=== PATIENT | female | born 1950 | race African-American/Black ===

== ENCOUNTER 2016-05-15 10:39 | Day surgery (SDC) | payer MEDICARE ==
[2016-05-15] VITALS (9 sets, daily range): BP systolic 128–188; BP diastolic 74–116
[~2016-05-15] VITALS: Ht 167.6 cm; Wt 77.1 kg
--- OUTSIDE RECORDS SUMMARY | 2016-05-15 10:44 | XMS REPORT ---
Author Author Ezio Hernández [facility] Address [address] [place], [place] [id number] Care Team Providers Care Forms Examiner Name Role Phone Ezio Hernández PCP Rosendo Zazueta PreferredProvider Unavailable Allergies and Adverse Reactions Name Reaction Notes codeine sulfate out of body feeling Bactrim DS hives Plan of Treatment Planned Activity Comments Planned Date Planned Time Plan/Goal Lipid Profile 01/25/2012 12:00 AM Medications Active Name Start Date Estimated Completion Date SIG Comments amlodipine 10 mg oral tablet 02/05/2015 TAKE ONE TABLET BY MOUTH ONCE DAILY Mobic 7.5 mg oral tablet 03/09/2016 04/08/2016 take 1 tablet (7.5 mg) by oral route once daily for 30 days Name Start Date Expiration Date SIG Comments Lortab 5-500 mg oral tablet 11/28/2010 12/08/2010 take 1 tablet by oral route every 6 hours as needed for pain for 10 days Keflex 500 mg oral capsule 12/10/2010 12/17/2010 take 1 capsule (500 mg) by oral route every 12 hours for 7 days Diflucan 150 mg oral tablet 12/10/2010 12/11/2010 take 1 tablet (150 mg) by oral route once for 1 day Lortab 7.5-500 mg oral tablet 12/10/2010 12/24/2010 take 1 tablet by oral route every 6 hours as needed for pain for 14 days Colace 100 mg oral capsule 12/17/2010 02/15/2011 take 1 capsule (100 mg) by oral route 2 times per day as needed for constipation citalopram 20 mg oral tablet 01/13/2011 take 1 tablet (20 mg) by oral route once daily Taking Zoloft Augmentin 500-125 mg oral tablet 11/30/2011 12/07/2011 take 1 tablet by oral route every 12 hours for 7 days doxycycline hyclate 100 mg oral tablet 03/01/2012 03/08/2012 take 1 tablet ( 100 mg) by oral route 2 times per day for 7 days Zithromax Z-Virgil 250 mg oral tablet 05/09/2012 05/14/2012 take 2 tablets (500 mg) by oral route once daily for 1 day then 1 tablet (250 mg) by oral route once daily for 4 days Zithromax Z-Virgil 250 mg oral tablet 03/30/2013 04/04/2013 take 2 tablets (500 mg) by oral route once daily for 1 day then 1 tablet (250 mg) by oral route once daily for 4 days amoxicillin-pot clavulanate 500-125 mg oral tablet 04/11/2013 04/18/2013 take 1 tablet by oral route every 12 hours for 7 days naproxen 500 mg oral tablet 11/20/2013 05/19/2014 take 1 tablet (500 mg) by oral route every 12 hours with food for 30 days takes IBproffin instead amlodipine 10 mg oral tablet 05/30/2014 11/26/2014 take 1 tablet (10 mg) by oral route once daily for 30 days metronidazole 500 mg oral tablet 03/01/2015 03/08/2015 take 1 tablet by oral route 2 times a day for 7 days Cipro 500 mg oral tablet 03/01/2015 03/08/2015 take 1 tablet (500 mg) by oral route 2 times per day for 7 days alprazolam 0.5 mg oral tablet 11/28/2015 02/26/2016 take 1 tablet by oral route once a day (at bedtime) as needed metronidazole 500 mg oral tablet 12/23/2015 12/28/2015 take 1 tablet (500 mg) by oral route 2 times per day for 5 days ciprofloxacin HCl 500 mg oral tablet 12/23/2015 12/28/2015 take 1 tablet (500 mg) by oral route every 12 hours for 5 days Discontinued Name Start Date Discontinued Date SIG Comments Celexa 20 mg oral tablet 08/05/2010 take 1 tablet (20 mg) by oral route once daily doxycycline hyclate 100 mg oral capsule 10/06/2010 take 1 capsule (100 mg) by oral route twice daily Dr. Trevino lisinopril 20 mg oral tablet 09/29/2010 12/01/2010 take 2 tablets (40 mg) by oral route once daily Mobic 15 mg oral tablet 10/06/2010 11/28/2010 take 1 tablet by oral route QD for 30 days bupropion HCl 150 mg oral tablet extended release 24 hr 10/06/2010 11/28/2010 take 1 tablet (150 mg) by oral route once daily cyclobenzaprine 10 mg oral tablet 02/05/2011 11/30/2011 take 0.5-1 tablet by oral route once a day (at bedtime) as needed Lidoderm 5 % topical adhesive patch,medicated 02/05/2011 11/30/2011 apply 1 patch by transdermal route once daily (May wear up to 12hours.) Nasonex 50 mcg/actuation nasal spray,non-aerosol 02/05/2011 10/17/2012 spray 2 sprays in each nostril by intranasal route once daily hydrocodone-acetaminophen 7.5-500 mg oral tablet 04/14/2011 11/30/2011 take 1 tablet by oral route every 6 hours as needed for pain meloxicam 15 mg oral tablet 11/30/2011 03/01/2012 take 1 tablet (15 mg) by oral route once daily for 30 days "finished prescription" Flexeril 10 mg oral tablet 03/01/2012 04/11/2013 take 1 tablet by mouth daily at HS prednisone 20 mg oral tablet 04/28/2012 10/17/2012 take 2 tablets daily x2 days then, then 1 daily x2 days, then 1/2 tablet daily x 4 days. Claritin-D 12 Hour 5-120 mg oral tablet extended release 12 hr 05/09/201210/17 take 1 tablet by oral route every 12 hours promethazine-codeine 6.25-10 mg/5 mL oral syrup 05/09/2012 10/17/2012 take 5 milliliters by oral route every 4-6 hours as needed, not to exceed 30 mL in 24 hours ibuprofen 800 mg oral tablet 10/17/2012 04/11/2013 take 1 tablet by oral route 3 times a day as needed with food hyoscyamine sulfate 0.125 mg oral tablet 04/11/2013 12/23/2015 take 1 tablet (0.125 mg) by oral route 3 times per day as needed loratadine 10 mg oral tablet 04/11/2013 12/23/2015 take 1 tablet (10 mg) by oral route once daily as needed sertraline oral 01/04/2014 fluticasone 50 mcg/actuation nasal spray,suspension 07/03/2013 07/12/2014 inhale 1 spray (50 mcg) in each nostril by intranasal route 2 times per day ibuprofen 800 mg oral tablet 09/29/2013 11/20/2013 take 1 tablet (800 mg) by oral route 3 times per day with food as needed Changing to naproxen cyclobenzaprine 10 mg oral tablet 11/20/2013 12/23/2015 take 1 tablet (10 mg) by oral route 2 times per day as needed Fetzima 20 mg oral capsule,extended release 24 hr 10/14/2014 12/23/2015 take 1 capsule (20 mg) by oral route once daily for 2 days then 2 capsules (40 mg) daily about the same time each day omeprazole 20 mg oral capsule,delayed release(DR/EC) 11/19/2014 12/23/2015 take 1 capsule (20 mg) by oral route once daily before a meal Benicar 40 mg oral tablet 04/04/2015 08/19/2015 take 1 tablet (40 mg) by oral route once daily irbesartan 300 mg oral tablet 08/19/2015 12/23/2015 take 1 tablet (300 mg) by oral route once daily for 30 days Problem List Description Status Onset Anxiety Disorder Active Arthritis unspecified Active Hypertension Active Knee Pain Active lumbar back pain Active Vital Signs Date Time BP-Sys(mm[Hg] BP-Bessy(mm[Hg]) HR(bpm) RR(rpm) Temp WT HT HC BMI BSA BMI Percentile O2 Sat(%) 03/06/2016 9:45:00 AM 132 mmHg 76 mmHg 76 bpm 18 rpm 97.7 F 172.125 lbs 66 in 27.78 kg/m2 1.91 m2 97 % 12/23/2015 10:04:00 AM 138 mmHg 84 mmHg 74 bpm 16 rpm 98.9 F 170 lbs 66 in 27.4384 kg/m 1.8949 m 97 % 03/01/2015 9:53:00 AM 120 mmHg 80 mmHg 73 bpm 18 rpm 98.5 F 170 lbs 66 in 27.44 kg/m2 1.89 m2 99 % 01/21/2015 2:29:00 PM 130 mmHg 76 mmHg 79 bpm 18 rpm 98.6 F 168.25 lbs 66 in 27.156 kg/m 1.8852 m 96 % 11/19/2014 1:33:00 PM 119 mmHg 77 mmHg 79 bpm 20 rpm 97.8 F 166 lbs 66 in 26.79 kg/m2 1.87 m2 97 % 10/09/2014 3:20:00 PM 130 mmHg 90 mmHg 67 bpm 16 rpm 98.5 F 173 lbs 66 in 27.9226 kg/m 1.9116 m 97 % 07/12/2014 3:48:00 PM 120 mmHg 76 mmHg 63 bpm 16 rpm 98.4 F 170.25 lbs 66 in 27.48 kg/m2 1.90 m2 94 % 05/16/2014 8:28:00 AM 142 mmHg 82 mmHg 70 bpm 18 rpm 98 F 167 lbs 66 in 26.9542 kg/m 1.8781 m 98 % 01/04/2014 3:52:00 PM 142 mmHg 78 mmHg 77 bpm 20 rpm 98.1 F 170 lbs 66 in 27.44 kg/m2 1.89 m2 95 % 11/20/2013 3:42:00 PM 152 mmHg 100 mmHg 70 bpm 16 rpm 98 F 171.5 lbs 98 % 07/03/2013 9:30:00 AM 138 mmHg 70 mmHg 80 bpm 16 rpm 98.1 F 177 lbs 66 in 28.5683 kg/m 1.93 m2 98 % 04/11/2013 3:38:00 PM 142 mmHg 70 mmHg 62 bpm 18 rpm 97.3 F 170 lbs 66 in 27.44 kg/m2 1.8949 m 96 % 10/17/2012 10:15:00 AM 138 mmHg 78 mmHg 78 bpm 20 rpm 98.1 F 169 lbs 66 in 27.277 kg/m 1.89 m2 05/09/2012 2:49:00 PM 142 mmHg 74 mmHg 72 bpm 18 rpm 99.1 F 180.062 lbs 66 in 29.06 kg/m2 1.9502 m 04/28/2012 9:10:00 AM 138 mmHg 82 mmHg 66 bpm 18 rpm 98.8 F 178.125 lbs 66 in 28.7498 kg/m 1.94 m2 03/01/2012 8:33:00 AM 142 mmHg 82 mmHg 68 bpm 16 rpm 98.2 F 176 lbs 66 in 28.41 kg/m2 1.9281 m 02/03/2012 3:09:00 PM 142 mmHg 86 mmHg 68 bpm 18 rpm 98 F 176.375 lbs 66 in 28.4674 kg/m 1.93 m2 11/30/2011 10:36:00 AM 138 mmHg 72 mmHg 68 bpm 18 rpm 98.1 F 173 lbs 66 in 27.92 kg/m2 1.9116 m 04/14/2011 9:54:00 AM 140 mmHg 82 mmHg 62 bpm 18 rpm 96.9 F 161 lbs 66 in 25.9858 kg/m 1.84 m2 97 % 02/17/2011 10:37:00 AM 144 mmHg 80 mmHg 76 bpm 18 rpm 98.1 F 163 lbs 66 in 26.31 kg/m2 1.8555 m 02/05/2011 10:02:00 AM 138 mmHg 80 mmHg 72 bpm 18 rpm 98.2 F 162 lbs 66 in 26.1472 kg/m 1.85 m2 01/13/2011 2:00:00 PM 154 mmHg 88 mmHg 70 bpm 18 rpm 98.2 F 162 lbs 66 in 26.15 kg/m2 1.8498 m 01/08/2011 11:21:00 AM 165 mmHg 98 mmHg 73 bpm 96.8 F 161 lbs 12/25/2010 11:19:00 AM 122 mmHg 79 mmHg 73 bpm 95.6 F 12/17/2010 11:14:00 AM 181 mmHg 95 mmHg 63 bpm 12/10/2010 10:48:00 AM 177 mmHg 97 mmHg 63 bpm 161 lbs 12/01/2010 11:19:00 AM 154 mmHg 80 mmHg 74 bpm 20 rpm 97.8 F 162 lbs 11/28/2010 11:21:00 AM 170 mmHg 98 mmHg 63 bpm 97.3 F 161 lbs 66 in 25.99 kg/m2 1.8441 10/06/2010 9:53:00 AM 148 mmHg 80 mmHg 72 bpm 16 rpm 97.6 F 162 lbs 08/14/2010 9:18:00 AM 157 mmHg 92 mmHg 64 bpm 97.5 F 163 lbs 66 in 26.31 kg/m2 1.8555 08/05/2010 2:18:00 PM 144 mmHg 80 mmHg 72 bpm 18 rpm 97.9 F 161 lbs 66 in 25.9858 kg/m 1.84 m2 Social History Name Description Comments Tobacco Current every day smoker Alcohol Use - Occasional History of Procedures Date Ordered Description Order Status 01/13/2011 12:00 AM COMPREHEN METABOLIC PANEL Reviewed 01/13/2011 12:00 AM LIPID PANEL Reviewed 01/21/2011 12:00 AM MAMMOGRAM SCREENING Reviewed 03/01/2015 10:24 AM URINALYSIS AUTO W/O SCOPE Reviewed 03/01/2015 12:00 AM URINE CULTURE/COLONY COUNT Reviewed 03/01/2015 12:00 AM INFLUENZA VACCINE QUADRIVALENT 3 YRS PLUS IM Reviewed 02/17/2011 12:00 AM X-RAY EXAM OF HIP Reviewed 02/17/2011 12:00 AM Decadron 8 mg [facility]#[id number] Reviewed 02/17/2011 12:00 AM Depo-Medrol 80mg [place]#[id number] Reviewed 04/14/2011 12:00 AM MRI LUMBAR SPINE W/O DYE Reviewed 04/17/2011 12:00 AM X-RAY EXAM OF HIP Reviewed 04/17/2011 12:00 AM Decadron 8 mg [facility]#[id number] Reviewed 04/17/2011 12:00 AM Depo-Medrol 80mg [facility]#[id number] Reviewed 12/23/2015 1:42 PM URINALYSIS AUTO W/O SCOPE Reviewed 03/06/2016 12:00 AM COMPLETE CBC W/AUTO DIFF WBC Returned 03/06/2016 12:00 AM COMPREHEN METABOLIC PANEL Returned 11/30/2011 12:00 AM COMPLETE CBC W/AUTO DIFF WBC Reviewed 11/30/2011 12:00 AM COMPREHEN METABOLIC PANEL Reviewed 11/30/2011 12:00 AM LIPID PANEL Reviewed 11/30/2011 12:00 AM ASSAY THYROID STIM HORMONE Reviewed 02/08/2012 12:00 AM THER/PROPH/DIAG INJ SC/IM Reviewed 02/08/2012 12:00 AM TB INTRADERMAL TEST Reviewed 10/17/2012 12:00 AM COMPREHEN METABOLIC PANEL Reviewed 10/17/2012 12:00 AM ASSAY THYROID STIM HORMONE Reviewed 10/17/2012 12:00 AM ASSAY OF FREE THYROXINE Reviewed 10/17/2012 12:00 AM FREE ASSAY (FT-3) Reviewed 04/11/2013 12:00 AM IMMUNIZATION ADMIN Reviewed 04/11/2013 12:00 AM FLU VACCINE 3 YRS & > IM Reviewed 05/16/2014 12:00 AM COMPREHEN METABOLIC PANEL Reviewed 05/16/2014 12:00 AM LIPID PANEL Reviewed 10/06/2010 12:00 AM X-RAY EXAM KNEE 4 OR MORE Reviewed 11/28/2010 12:00 AM COMPLETE CBC W/AUTO DIFF WBC Reviewed 11/28/2010 12:00 AM COMPREHEN METABOLIC PANEL Reviewed 11/28/2010 12:00 AM Type and screen Reviewed 11/28/2010 12:00 AM ELECTROCARDIOGRAM COMPLETE Reviewed Results Summary Data and Description Results 11/28/2010 12:27 PM WBC 5.4 RBC 4.51 HGB 14.30 g/dLHCT 43.10 %MCV 96.0 fLMCH 31.70 pgMCHC 33.20 g/dLRDW SD 47 RDW CV 13.60 %MPV 9.80 fLPLT 233 NRBC# 0.00 NRBC% 0.0 %NEUT 41.0 %%LYMP 48.80 %%MONO 6.80 %%EOS 2.80 %%BASO 0.60 %#NEUT 2.23 #LYMP 2.65 #MONO 0.37 #EOS 0.15 #BASO 0.03 MANUAL DIFF NOT IND GLUCOSE 91.0 mg/dLSODIUM 141.0 mmol/LPOTASSIUM 4.10 mmol/LCHLORIDE 110.0 mmol/LCO2 24.0 mmol/LBUN 10.0 mg/dLCREATININE 0.80 mg/dLSGOT/AST 10.0 IU/LSGPT/ALT 12.0 IU/ LALK PHOS 116.0 IU/LTOTAL PROTEIN 6.90 g/dLALBUMIN 4.0 g/dLTOTAL BILI 0.50 mg/ dLCALCIUM 10.90 mg/dLAGE 60 GFR NonAA 73 GFR AA 88 eGFR >60 mL/min/1.73 m2eGFR AA* >60 12/03/2010 5:55 AM WBC 7.1 RBC 3.98 HGB 12.40 g/dLHCT 38.30 %MCV 96.0 fLMCH 31.20 pgMCHC 32.40 g/dLRDW SD 48 RDW CV 13.80 %MPV 9.80 fLPLT 216 NRBC# 0.00 NRBC% 0.0 01/21/2011 8:40 AM TRIGLYCERIDES 100.0 mg/dLCHOLESTEROL 198.0 mg/dLHDL 45.0 mg/ dLTOT CHOL/HDL 4.4 LDL (CALC) 133.0 mg/dLGLUCOSE 97.0 mg/dLSODIUM 143.0 mmol/ LPOTASSIUM 3.70 mmol/LCHLORIDE 111.0 mmol/LCO2 25.0 mmol/LBUN 8.0 mg/ dLCREATININE 0.80 mg/dLSGOT/AST 10.0 IU/LSGPT/ALT 10.0 IU/LALK PHOS 120.0 IU/ LTOTAL PROTEIN 6.80 g/dLALBUMIN 4.0 g/dLTOTAL BILI 0.70 mg/dLCALCIUM 10.80 mg/ dLAGE 60 GFR NonAA 73 GFR AA 88 eGFR >60 mL/min/1.73 m2eGFR AA* >60 12/01/2011 10:58 AM WBC 5.5 RBC 4.56 HGB 14.50 g/dLHCT 43.80 %MCV 96.0 fLMCH 31.80 pgMCHC 33.10 g/dLRDW SD 47 RDW CV 13.40 %MPV 10.30 fLPLT 256 NRBC# 0.00 NRBC% 0.0 %NEUT 40.10 %%LYMP 50.20 %%MONO 5.70 %%EOS 3.60 %%BASO 0.40 %#NEUT 2.20 #LYMP 2.75 #MONO 0.31 #EOS 0.20 #BASO 0.02 MANUAL DIFF NOT IND TSH 1.410 uIU/mLGLUCOSE 97.0 mg/dLSODIUM 142.0 mmol/LPOTASSIUM 4.10 mmol/LCHLORIDE 114.0 mmol/LCO2 22.0 mmol/LBUN 10.0 mg/dLCREATININE 0.80 mg/dLSGOT/AST 10.0 IU/LSGPT/ ALT 8.0 IU/LALK PHOS 103.0 IU/LTOTAL PROTEIN 6.50 g/dLALBUMIN 3.70 g/dLTOTAL BILI 0.40 mg/dLCALCIUM 10.40 mg/dLAGE 61 GFR NonAA 73 GFR AA 88 eGFR 60 eGFR AA * 60 TRIGLYCERIDES 101.0 mg/dLCHOLESTEROL 190.0 mg/dLHDL 37.0 mg/dLTOT CHOL/HDL 5.1 LDL (CALC) 133.0 mg/dL 10/17/2012 11:27 AM GLUCOSE 87.0 mg/dLSODIUM 142.0 mmol/LPOTASSIUM 4.0 mmol/ LCHLORIDE 110.0 mmol/LCO2 22.0 mmol/LBUN 9.0 mg/dLCREATININE 0.90 mg/dLSGOT/AST 12.0 IU/LSGPT/ALT 16.0 IU/LALK PHOS 116.0 IU/LTOTAL PROTEIN 7.10 g/dLALBUMIN 4.20 g/dLTOTAL BILI 0.70 mg/dLCALCIUM 11.40 mg/dLAGE 62 GFR NonAA 63 GFR AA 76 eGFR 60 eGFR AA* 60 FREE T4 0.98 TSH 1.320 uIU/mL 05/17/2014 8:26 AM TRIGLYCERIDES 101.0 mg/dLCHOLESTEROL 213.0 mg/dLHDL 40.0 mg/ dLTOT CHOL/HDL 5.3 LDL (CALC) 153.0 mg/dLGLUCOSE 85.0 mg/dLSODIUM 142.0 mmol/ LPOTASSIUM 4.20 mmol/LCHLORIDE 112.0 mmol/LCO2 24.0 mmol/LBUN 8.0 mg/ dLCREATININE 0.80 mg/dLSGOT/AST 12.0 IU/LSGPT/ALT 12.0 IU/LALK PHOS 112.0 IU/ LTOTAL PROTEIN 6.70 g/dLALBUMIN 4.0 g/dLTOTAL BILI 0.60 mg/dLCALCIUM 10.70 mg/ dLAGE 64 GFR NonAA 72 GFR AA 87 eGFR >60 mL/min/1.73 m2eGFR AA* >60 03/01/2015 10:24 AM Clarity Ur cloudy Color Ur dark yellow Glucose Ur-sCnc negative Bilirub Ur Ql Strip negative Ketones Ur Ql Strip negative Sp Gr Ur Qn 1.025 Hgb Ur Ql Strip trace lysed pH Ur-LsCnc 5.5 Prot Ur Ql Strip 30mg/dL Urobilinogen Ur-mCnc 1.0 Nitrite Ur Ql Strip positive WBC Est Ur Ql Strip small 12/23/2015 1:42 PM Clarity Ur cloudy Color Ur dark yellow Glucose Ur-sCnc negative Bilirub Ur Ql Strip negative Ketones Ur Ql Strip negative Sp Gr Ur Qn 1.020 Hgb Ur Ql Strip trace-lysed pH Ur-LsCnc 6.0 Prot Ur Ql Strip negative Urobilinogen Ur-mCnc negative Nitrite Ur Ql Strip negative WBC Est Ur Ql Strip large 03/06/2016 10:28 AM GLUCOSE 91.0 mg/dLSODIUM 142.0 mmol/LPOTASSIUM 3.90 mmol/ LCHLORIDE 111.0 mmol/LCO2 24.0 mmol/LBUN 10.0 mg/dLCREATININE 0.90 mg/dLSGOT/ AST 11.0 IU/LSGPT/ALT 12.0 IU/LALK PHOS 124.0 IU/LTOTAL PROTEIN 6.70 g/ dLALBUMIN 4.0 g/dLTOTAL BILI 0.50 mg/dLCALCIUM 10.60 mg/dLAGE 66 GFR NonAA 63 GFR AA 76 eGFR >60 mL/min/1.73meGFR AA* >60 WBC 6.9 RBC 4.86 HGB 15.10 g/ dLHCT 46.50 %MCV 96.0 fLMCH 31.10 pgMCHC 32.50 g/dLRDW SD 47 RDW CV 13.20 %MPV 9.60 fLPLT 248 NRBC# 0.00 NRBC% 0.0 %NEUT 43.90 %%LYMP 46.50 %%MONO 6.90 %%EOS 2.20 %%BASO 0.40 %#NEUT 3.04 #LYMP 3.22 #MONO 0.48 #EOS 0.15 #BASO 0.03 MANUAL DIFF NOT IND History Of Immunizations Name Date Admin Mfg Name Mfg Code Trade Name Lot# Route Inj Vis Given Vis Pub CVX Influenza 03/01/2015 sanofi pasteur PMC Fluzone Quadrivalent [id number] Intramuscular Left Deltoid 06/06/2015 11/30/2014 140 History of Past Illness Name Date of Onset Comments Arthritis unspecified Anxiety Disorder Hypertension lumbar back pain Knee Pain Essential Hypertension Aug 05 2010 2:19PM Depressive Disorder Aug 05 2010 2:19PM Tobacco use disorder Aug 05 2010 2:19PM Hidradenitis Suppurativa Aug 14 2010 9:16AM Pain in joint; right knee Oct 06 2010 9:52AM Hypertension Oct 06 2010 9:52AM Hidradenitis Suppurativa Nov 28 2010 11:20AM Hypertension Dec 01 2010 11:17AM Hidradenitis Suppurativa Dec 10 2010 10:48AM Hidradenitis Suppurativa Dec 17 2010 11:14AM Postoperative Examination Following Surgery Dec 17 2010 11:14AM Postoperative Examination Following Surgery Dec 25 2010 11:17AM Postoperative Examination Following Surgery Jan 08 2011 11:18AM Hypertension Jan 13 2011 1:58PM Bursitis, right knee Feb 05 2011 9:59AM Back Pain, left thoracic and bilateral lumbar Feb 05 2011 9:59AM Pain in joint; Left Hip Feb 17 2011 10:34AM Low Back Pain Feb 17 2011 10:34AM Low Back Pain Apr 14 2011 9:57AM Pain in joint; Knee,right Apr 14 2011 9:57AM Hypertension Nov 30 2011 10:37AM Osteoarthritis Nov 30 2011 10:37AM Fatigue Nov 30 2011 10:37AM Right knee pain Nov 30 2011 10:37AM Hyperlipidemia Jan 25 2012 10:27AM General Medical Exam, Adult Feb 03 2012 3:11PM tb skin test Feb 09 2012 6:25PM Pain in joint; right knee Mar 01 2012 8:35AM Cervicitis Mar 01 2012 8:35AM Right knee pain Apr 28 2012 9:12AM Upper Respiratory Infections May 09 2012 2:50PM Fatigue Oct 17 2012 10:18AM Anxiety Disorder Oct 17 2012 10:18AM Arthritis unspecified Oct 17 2012 10:18AM Low Back Pain Oct 17 2012 10:18AM Flu Apr 11 2013 4:48PM Rhinitis, Allergic Apr 11 2013 3:40PM Irritable Bowel Syndrome Apr 11 2013 3:40PM Eustachian Tube Dysfunction, Right Jul 03 2013 9:31AM Chronic Pain in joint; right knee Nov 20 2013 3:51PM Chronic Lumbar back pain Nov 20 2013 3:51PM Right shoulder pain Jan 04 2014 3:54PM Hypertension May 16 2014 8:30AM Essential Hypertension Jul 12 2014 3:54PM Mild Dependent Edema Jul 12 2014 3:54PM Vertigo Oct 09 2014 3:23PM Depressive Disorder Oct 09 2014 3:23PM Gastroesophageal Reflux Nov 19 2014 1:34PM Epigastric pain Nov 19 2014 1:34PM Routine gynecological examination Jan 21 2015 2:31PM Visit for screening mammogram Jan 21 2015 2:31PM Dysuria Mar 01 2015 9:58AM Flu Vaccine Mar 01 2015 10:33AM Upper Respiratory Infection Mar 01 2015 9:58AM Acute cystitis without hematuria Mar 01 2015 9:58AM Vaginal discharge Dec 23 2015 10:07AM Easy bruising Mar 06 2016 9:47AM Callus of foot Mar 06 2016 9:47AM Payers Insurance Name Company Name Plan Name Plan Number Policy Number Policy Group Number Start Date Medicare Part A Medicare RHC [id number] N/A [facility] Assistance [facility] Prog [id number] N/A Medicare Part B Medicare Of [place] [id number] N/A Medicare Part A Medicare Part A [id number] N/A [facility] [id number] Friday, February 03, 2012 [facility] Plan [facility] Comm [id number] Sunday, June 24, 2012 [place] [employer] Manager Prog - RHC [place] Customer [employer] Manager Prog - RHC [id number] N/A Medicare Part A [id number] P A - Preventive [id number] N/A Medicare Part A Medicare - Lab/Xray [id number] N/A History of Encounters Visit Date Visit Type Provider 03/06/2016 Office visit Ezio Hernández PEDIATRIC NP 12/23/2015 Office visit Rosendo Marbin DO 03/01/2015 Office visit Rosendo Marbin DO 01/21/2015 Office visit Rosendo Marbin DO 11/19/2014 Office visit Naima Avalos PEDIATRIC NP 10/09/2014 Office visit Rosendo Marbin DO 07/12/2014 Office visit Rosendo Marbin DO 05/16/2014 Office visit Rosendo Marbin DO 01/04/2014 Office visit Rosendo Marbin DO 11/20/2013 Office visit Rosendo Marbin DO 07/03/2013 Office visit Rosendo Marbin DO 04/11/2013 Office visit Rosendo Marbin DO 10/17/2012 Office visit Rosendo Marbin DO 05/09/2012 Office visit Jazzmine Farrell PEDIATRIC NP 04/28/2012 Office visit Jazzmine Farrell PEDIATRIC NP 03/01/2012 Office visit Rosendo Marbin DO 02/08/2012 Nurse visit Rosendo Zazueta DO 02/03/2012 Office visit Jazzmine Farrell PEDIATRIC NP 11/30/2011 Office visit Jazzmine Farrell PEDIATRIC NP 04/14/2011 Office visit Rosendo Marbin DO 02/17/2011 Office visit Rosendo Marbin DO 02/05/2011 Office visit Rosendo Marbin DO 01/13/2011 Office visit Rosendo Zazueta DO 01/08/2011 Surgery Sohail Carrasquillo MD 12/25/2010 Surgery Sohail Carrasquillo MD 12/17/2010 Surgery Adan Espinal MD 12/10/2010 Surgery Adan Espinal MD 12/02/2010 [facility] Sohail Carrasquillo MD 12/01/2010 Office visit Rosendo Zazueta DO 11/28/2010 Surgery Sohail Carrasquillo MD 11/28/2010 [facility] Kyung Vazquez MD 10/06/2010 Office visit Rosendo Zazueta DO 08/14/2010 Office visit Sohail Carrasquillo MD 08/05/2010 Office visit Rosendo Zazueta DO 11/12/2009 Laboratory Terrance Del Rosario MD 08/15/2009 [facility] Terrance Del Rosario MD 08/14/2009 [facility] Terrance Del Rosario MD 08/07/2009 Laboratory Aisha Morris MD
[2016-05-15] MEDS ORDERED: LIDOCAINE 1% INJ 20 ML (XYLOCAINE) VIAL ONE ×2 (10:45→15:01)
[2016-05-15] MEDS ORDERED: NS IV 1000 ML 1,000 ML ONE (10:45)
[2016-05-15] MEDS ORDERED: HEParin (CATH LAB) 2,000 ML IV ONE (10:45)
[2016-05-15 11:21] LABS: BILIRUBIN,URINE NEGATIVE (NEGATIVE); KETONES,URINE NEGATIVE (NEGATIVE); LEUKOCYTE ESTERASE ,URINE NEGATIVE (NEGATIVE); NITRITE,URINE NEGATIVE (NEGATIVE); PH,URINE 6.5 (5-9); PROTEIN,URINE NEGATIVE (NEGATIVE); UROBILINOGEN,URINE 4 MG/DL (NORMAL)
[2016-05-15 11:22] LABS: RED BLOOD COUNT 4.84 10^6/uL (4.35-5.85); WHITE BLOOD COUNT 6.7 10^3/uL (4.3-11.0)
[2016-05-15 11:27] LABS: WBC,URINE 0-2 /HPF
[2016-05-15 11:40] LABS: PROTHROMBIN TIME PATIENT 12.6 SEC (12.2-14.7)
[2016-05-15 11:54] LABS: ALANINE AMINOTRANSFERASE 14 U/L (0-55); ALBUMIN 3.9 G/DL (3.2-4.5); ANION GAP 6 MMOL/L (5-14); ASPARTATE AMINO TRANSFERASE 10 U/L (5-34); BILIRUBIN,TOTAL 0.6 MG/DL (0.1-1.0); BLOOD UREA NITROGEN 11 MG/DL (7-18); BUN/CREATININE RATIO 13; CALCIUM 10.5 MG/DL (8.5-10.1); CARBON DIOXIDE 23 MMOL/L (21-32); CHLORIDE 111 MMOL/L (98-107); CHOLESTEROL 223 MG/DL (< 200); CREATININE SERUM 0.88 MG/DL (0.60-1.30); DIRECT LDL 167 MG/DL (1-129); GFR ESTIMATED > 60; GLUCOSE 87 MG/DL (70-105); POTASSIUM 4.2 MMOL/L (3.6-5.0); SODIUM 140 MMOL/L (135-145); TOTAL PROTEIN 6.8 G/DL (6.4-8.2); TRIGLYCERIDES 88 MG/DL (<150); VLDL CHOLESTEROL 18 MG/DL (5-40)
--- NOTE | 2016-05-15 12:10 | Diagnostic Imaging Report ---
PA view of the chest. INDICATION: Preoperative evaluation for peripheral angiography. FINDINGS: The lungs are clear. The heart size is normal. No effusion or pneumothorax. Mediastinum and kolton appear unremarkable. IMPRESSION: Unremarkable exam. Dictated by: Dictated on workstation # [id number]
[2016-05-15] MEDS ORDERED: amLODIPine 5 MG (NORVASC) TAB ONE (13:25)
[2016-05-15] MEDS ORDERED: amLODIPine 10 MG (NORVASC) TAB PO ONE (13:30)
[2016-05-15] MEDS ORDERED: NS IV 1000 ML 1,000 ML IV ONE (13:30)
[2016-05-15] MEDS ORDERED: FLU TRIvalent (5 YOA+) 2016-17 (AFLURIA) 0.5 ML IM ONE (13:45)
[2016-05-15] MEDS ORDERED: OMEP20TA33 PO (14:00)
[2016-05-15] MEDS ORDERED: ACET-2267 PO (14:00)
[2016-05-15] MEDS ORDERED: DOCU-143 PO (14:00)
[2016-05-15] MEDS ORDERED: MIDAZOLAM 5 MG/5 ML (VERSED) VIAL ONE (14:05)
[2016-05-15] MEDS ORDERED: fentaNYL INJECTION 100 MCG/2 ML AMP ONE (14:05)
--- NOTE | 2016-05-15 14:14 | Cardiac Procedure Note-CS/ASA ---
Pre-Procedure Note Pre-Op Procedure Note H&P Reviewed The H&P was reviewed, patient examined and no changes noted. Date H&P Reviewed: May 15, 2016 Time H&P Reviewed: 14:14 Conscious Sedation Pre-Proced Time Reviewed: 14:14 ASA Class: 3 Airway Mallampati Classification: ([place] appropriate class) I. II. III, IV Lungs Heart ASA score ASA 1: a normal healthy patient ASA 2: a patient with a mild systemic disease (mid diabetes, controlled hypertension, obesity x ASA 3: a patient with a severe systemic disease that limits activity (angina , COPD, prior Myocardial infarction) ASA 4: a patient with an incapacitating disease that is a constant threat to life (CHF, renal failure) ASA 5: a moribund patient not expected to survive 24 hrs. (ruptured aneurysm) ASA 6: a declared brain patient whose organs are being harvested. For emergent operations, add the letter E after the classification Grade 3 Sedation Plan: Analgesia, Amnesia, Plan communicated to team members, Discussed options with patient/fam, Discussed risks with patient/fam Note The patient is an appropriate candidate to undergo the planned procedure, sedation, and anesthesia. The patient immediately re-assessed prior to indication. WANDA ZELAYA MD May 15, 2016 14:14
[2016-05-15] MEDS ORDERED: ALPR0.5T PO (14:50)
[2016-05-15] MEDS ORDERED: AMLO10TA2 PO (14:50)
[2016-05-15] MEDS ORDERED: OLME40TA16 PO (14:50)
[2016-05-15] MEDS ORDERED: IBUP-2055 PO (14:51)
[2016-05-15] MEDS ORDERED: HEParin 1000 UNIT/ML (10ML VIAL) FOR BOLUS ONE (14:56)
[2016-05-15] MEDS ORDERED: ACETAMINOPHEN 500 MG TAB (TYLENOL) PO PRN (16:00)
[2016-05-15] MEDS ORDERED: NON-FORMULARY MEDICATION 1 EA EA (Omeprazole Magnesium (Prilosec Otc) 20 MG) PO PRN (16:00)
[2016-05-15] MEDS ORDERED: DOCUSATE SODIUM 100 MG (COLACE) CAP PO PRN (16:00)
[2016-05-15] MEDS ORDERED: PATIENT MAY USE OWN MEDS, ALL PO SCH (16:00)
[2016-05-15] MEDS: NS IV 1000 ML 1,000 ML IV SCH (16:05)
[2016-05-15] MEDS ORDERED: PANTOPRAZOLE 20 MG TABLET (PROTONIX) PO PRN (17:30)
[2016-05-15] MEDS ORDERED: CATHETER FLUSH 10 ML SYR IV PRN (17:30)
[2016-05-15] MEDS ORDERED: ALPRAZolam 0.5 MG (XANAX) TAB PO SCH (21:00)
[2016-05-16] VITALS: BP 144/78
[2016-05-16] MEDS: NS IV 1000 ML 1,000 ML IV SCH (01:28)
[2016-05-16 04:00] VITALS: BP 157/83
[2016-05-16 04:03] LABS: ANION GAP 7 MMOL/L (5-14); BLOOD UREA NITROGEN 11 MG/DL (7-18); BUN/CREATININE RATIO 13; CALCIUM 9.9 MG/DL (8.5-10.1); CARBON DIOXIDE 19 MMOL/L (21-32); CHLORIDE 115 MMOL/L (98-107); CREATININE SERUM 0.84 MG/DL (0.60-1.30); GFR ESTIMATED > 60; GLUCOSE 84 MG/DL (70-105); POTASSIUM 4.1 MMOL/L (3.6-5.0); SODIUM 141 MMOL/L (135-145)
[2016-05-16] MEDS ORDERED: ASPI-983 PO (08:35)
[2016-05-16] MEDS ORDERED: CLOP75TA28 PO (08:35)
[2016-05-16] MEDS ORDERED: ATOR10TA PO (08:36)
--- NOTE | 2016-05-16 08:37 | Discharge Inst-Post CATH ---
Discharge Inst-CATH Post Cardiac Cath D/C Inst Follow Up/Plan Appointment with Dr. Babcock in his [place] clinic on Thursday, May 19, 2016 at [address] Zelaya's office in 2-4 weeks CARDIAC CATH DISCHARGE INSTRUCTIONS *Hold Metformin for 48 hours post heart cath. ACTIVITY * Go Home directly and rest. * Limit activity of the leg (or wrist if it was used) for 7 days including aerobics, swimming, jogging, bicycling, etc. * Restrict stair-climbing for 7 days if possible, if not, climb up with your non -cath leg, then bring together on the same step. * Avoid lifting, pushing, pulling or excessive movement of the affected extremity for 7 days. * Customary sexual activity may be resumed after 2 days-use caution not to use a position that strains or causes pain to the affected extremity. * No driving for 24 hours. * NO SMOKING. * Avoid straining for bowel movements for 7 days. * Gentle walking on level ground is allowed. * Returning to work will depend on the type of procedure and the results. Your doctor will discuss this with you. CALL YOUR DOCTOR FOR ANY OF THE FOLLOWING: *If bleeding from the puncture site occurs- Apply gentle pressure to site with clean cloth and call your doctor or EMS. * If a knot or lump forms under the skin, increases in size, or causes pain. * If bruising appears to be worsening or moving further down your leg instead of disappearing. * Temperature above 101 F. CARE OF YOUR GROIN INCISION; * Bruising or purple discoloration of the skin near the puncture site is common. * You may shower only, no bathtub bathing for 5 days. Be careful to avoid slipping as your leg may feel stiff. * If a closure device was used on your femoral artery, please see the attached guide regarding care of the device and your leg. * REMOVE the dressing from your groin the next day after your procedure in the shower. CARE OF YOUR WRIST INCISION; * Bruising or purple discoloration of the skin near the puncture site is common. * You may shower. * DO NOT submerge wrist. * Remove dressing in 24 hours. WANDA ZELAYA MD May 16, 2016 08:37
--- NOTE | 2016-05-16 08:40 | Cardiology Progress Note ---
Subjective Subjective/Events-last exam patient is feeling well, denied any pain, still having diminished pulse in her left leg. No palpitation. Review of Systems General: No Chills, No Night Sweats, No Fatigue, No Malaise, No Appetite, No Other HEENT: No Head Aches, No Visual Changes, No Eye Pain, No Ear Pain, No Dysphasia , No Sinus Congestion, No Post Nasal Drip, No Sore Throat, No Other Pulmonary: No Dyspnea, No Cough, No Pleuritic Chest Pain, No Other Cardiovascular: No: Chest Pain, Edema, Lt Headedness, Orthopnea, Other, Palpitations, Paroxysmal Noc. Dyspnea Gastrointestinal: No: Abdominal Pain, Constipation, Diarrhea, Hematochezia, Melena, Nausea, Other, Vomiting Objective-Cardiology Exam Last Set of Vital Signs Vital Signs 05/16/16 05/16/16 04:00 07:00 Temp 98.6 Pulse 58 Resp 14 B/P 157/83 Pulse Ox 68 O2 Delivery Room Air Capillary Refill : Less Than 3 Seconds General: Alert, Oriented X3, Cooperative HEENT: Atraumatic, PERRLA Neck: Supple, No JVD, No Thyromegaly Lungs: Clear to Auscultation, Normal Air Movement Heart: Regular Rate, Normal S1, Normal S2, No Murmurs Abdomen: Normal Bowel Sounds, Soft, No Tenderness, No Hepatosplenomegaly, No Masses Extremities: No Clubbing, No Cyanosis, No Edema, No Tenderness/Swelling Skin: No Rashes, No Breakdown, No Significant Lesion Neuro: Normal Gait, Normal Speech, Strength at 5/5 X4 Ext, Normal Tone, Sensation Intact Psych/Mental Status: Mental Status NL, Mood NL Results Lab Laboratory Tests 05/15/16 11:17 05/16/16 03:13 A/P-Cardiology Admission Diagnosis Peripheral arterial disease Hypertension Hyperlipidemia Claudication Assessment/Plan Peripheral arterial disease, 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 I discussed with the patient the management plan, she will be referred for evaluation for possible bypass surgery with Dr. Babcock. Continue on aspirin and Plavix Hypertension, educated about compliance with medication, continue current medication Hyperlipidemia started on Lipitor I started the patient on aspirin and Plavix. Gastroesophageal reflux disease Noncompliance with medication WANDA ZELAYA MD May 16, 2016 08:39
--- NOTE | 2016-05-16 08:40 | Clinic Account Progress/Dx ---
Clinic Account Progress/Dx DIAGNOSIS: Diagnosis Peripheral arterial disease Hypertension Hyperlipidemia Claudication WANDA ZELAYA MD May 16, 2016 08:40
[2016-05-16 08:48] VITALS: BP 168/84
[2016-05-16] MEDS ORDERED: OLMESARTAN 20 MG (BENICAR) TABLET PO SCH (09:00)
[2016-05-16] MEDS ORDERED: amLODIPine 10 MG (NORVASC) TAB PO SCH (09:00)
[2016-05-16] MEDS ORDERED: NON-FORMULARY MEDICATION 1 EA EA (Olmesartan Medoxomil (Benicar) 40 MG) PO SCH (09:00)
[2016-05-16] MEDS ORDERED: ASPIRIN E.C. 81 MG (ECOTRIN) TAB PO SCH (09:00)
[2016-05-16] MEDS ORDERED: CLOPIDOGREL 75 MG (PLAVIX) TABLET PO SCH (09:00)
[2016-05-16 11:05] VITALS: BP 168/84
--- NOTE | 2016-05-17 00:20 | CARDIAC CATHETERIZATION ---
PROCEDURE PHYSICIAN: WANDA ZELAYA DATE OF PROCEDURE: 05/15/2016 PERIPHERAL ANGIOGRAM REPORT: BRIEF HISTORY: Mrs. Amanda is a 66-year-old lady with severe claudication, abnormal IVON. She was scheduled for peripheral angiogram, possible angioplasty. PROCEDURE NOTE: After explaining the procedure to the patient, all pros and cons were explained. All questions were answered. The patient signed consent, then she was placed on the cardiac catheterization laboratory. The right groin was prepped in a sterile fashion. Local anesthesia applied to right groin. 6-Cypriot sheath was placed in the right femoral artery. Runoff of the right lower extremity was done through the sheath, then a pigtail catheter was advanced to the abdominal aorta. Abdominal aortogram was done. 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 I advanced an IM guide after giving the patient 5000 units of heparin, attempted to advance a Storq wire through the IM guide in the iliac artery without success. After multiple attempts, I was able to access the left groin. A 6-Cypriot sheath was placed in the left femoral artery. I was unable to advance a wire. There was a dissection in the left femoral artery. The wire continued to be subintimal. While the wire was still in the common iliac artery, I reintroduced the IM guide and attempted to cross with a glide wire that was able to advance down to the common femoral artery. Then I removed the guide and placed a mini catheter in the common femoral artery. Removed the wire and did manual injection with a small amount of contrast, showed filling in the common femoral artery, but no continuous flow. I pulled the mini catheter up to the common iliac artery and repeat the angiogram without good flow in the left leg. Then I removed the mini catheter and reintroduce the pigtail catheter, performed abdominal aortogram again, evaluated the lesion and evaluated the runoff to the left lower extremity. At the end of the procedure both sheaths were removed. The left groin had manual pressure. Right groin Mynx device. Hemostasis achieved. No complication noted. FINDINGS: 1. Abdominal aortogram showed atherosclerotic disease in the abdominal aorta. Origin of the renal arteries appeared normal. No dissection or aneurysm. 2. Right lower extremity: Right lower extremity runoff was done through the sheath showing mild disease down to the foot with no obstructive disease. 3. Left lower extremity: The left lower extremity runoff showed total occlusion of the common iliac artery, reconstructed at the superficial femoral artery with slow flow distally. Attempt to cross that lesion from the abdominal aorta or from the sheath that was placed in the left femoral artery has failed to stay in the lumen, mainly most of the cross were subintimal. At that time, the procedure was aborted. IN CONCLUSION: 1. 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 Slow flow in the SFA down to the trifurcation. Failed attempt for intervention. 2. Mild disease in the right lower extremity. 3. Atherosclerotic disease in the abdominal aorta. DISCUSSION AND RECOMMENDATION: I will discuss with the family the possibility for a bypass surgery versus attempt through the brachial access to open the iliac artery. Job ID: [id number] Dictated Date: 05/15/2016 16:15:42 Sloop Captain Date: 05/17/2016 00:10:26 / brian
== END 2016-05-16 11:30 | disposition home or self-care (01) ==
LOC: CATH 10:39 → ICU 14:30 → CATH 05-16 11:30
PROVIDERS: ATTEND Internal Medicine Cardiovascular Disease
DX: I70.213 Atherosclerosis of native arteries of extremities with intermittent claudication, bilateral legs (principal); I70.92 Chronic total occlusion of artery of the extremities; I70.0 Atherosclerosis of aorta; I10 Essential (primary) hypertension; E78.5 Hyperlipidemia, unspecified; I25.2 Old myocardial infarction; Z79.899 Other long term (current) drug therapy; Z72.0 Tobacco use; Z82.49 Family history of ischemic heart disease and other diseases of the circulatory system
CPT/HCPCS: 36245; 36415; 71010; 75625; 75716; 80048; 80053; 80061; 81000; 85027; 85347; 85610; 85730; 87081; 90471; 93005

== ENCOUNTER → 2022-12-31 | Outpatient (CLI) | payer MEDICARE ==
[~2022-12-31] MED LIST: ACET-2267 PO; ALPR0.5T PO; AMLO-251 PO; ASPI-1238 PO; ATOR10TA PO; CLOP75TA28 PO; DOCU-143 PO; IBUP-2473 PO; OLME40TA70 PO; OMEP20TA33 PO
--- NOTE | 2022-12-31 13:09 | Diagnostic Imaging Report ---
Exam: Nuclear medicine parathyroid study with SPECT-CT. Date: December 31, 2022. Indication: 72-year-old female, hyperparathyroidism. Comparison: None. Findings: 20.4 mCi of technetium labeled sestamibi was administered. Scintigraphic images at the level of the neck and chest were obtained 20 minutes and 2 hours after injection. SPECT-CT images were also obtained and provided. Findings: There is salivary gland and thyroid uptake on initial imaging with expected fading of thyroid activity on delayed imaging. This is a normal radiotracer distribution. There is no persistent radiotracer avid nodule to suggest a parathyroid adenoma at the level of the neck or chest. Impression: 1. No evidence of a parathyroid adenoma at the level of the neck or chest. Dictated by: Dictated on workstation # [id number]
== END ==
LOC: CARD 08:44
DX: E21.3 Hyperparathyroidism, unspecified (principal)
CPT/HCPCS: 78072